=== PATIENT | female | born 1985 | race Caucasian/White ===

== ENCOUNTER 2023-06-12 13:19 | Emergency (ER) | payer SELFPAY ==
[~2023-06-12] VITALS: Ht 160 cm; Wt 80.9 kg
[2023-06-12 14:09] LABS: BASOPHILS % (AUTO) 0.2 % (0-1); EOSINOPHILS % (AUTO) 0.3 % (0-6); HEMATOCRIT 42.3 % (35.0-45.0); HEMOGLOBIN 14.1 g/dl (12.0-16.0); LYMPHOCYTES # (AUTO) 0.8 X10'3 (1.1-4.8); LYMPHOCYTES % (AUTO) 6.1 % (21-51); MEAN CORPUSCULAR HEMOGLOBIN 28.4 PG (27.0-31.0); MEAN CORPUSCULAR HGB CONC 33.4 g/dL (33.0-36.5); MEAN PLATELET VOLUME 8.2 FL (7.4-10.4); MONOCYTES # (AUTO) 0.3 X10'3 (0-0.9); MONOCYTES % (AUTO) 2.1 % (2-12); NEUTROPHILS # (AUTO) 12.7 X10'3 (1.8-7.7); NEUTROPHILS % (AUTO) 91.3 % (42-75); PLATELET COUNT 321 X10'3 (140-440); RED BLOOD COUNT 4.98 X10'6 (4.20-5.60); WHITE BLOOD COUNT 13.9 X10'3 (4.5-11.0)
[2023-06-12] MEDS ORDERED: morphine 4 MG/ML inj SYRINge IV ONE (14:15)
[2023-06-12] MEDS ORDERED: ondansetron/PF 4mg/2ml inj IV ONE (14:15)
[2023-06-12 14:16] LABS: ALANINE AMINOTRANSFERASE 26 U/L (12-78); ALBUMIN 3.4 G/DL (3.4-5.0); ALBUMIN/GLOBULIN RATIO 0.7 (1.1-1.5); ALKALINE PHOSPHATASE 97 IU/L (46-116); ANION GAP 8 (8-16); ASPARTATE AMINO TRANSFERASE 14 U/L (10-37); BILIRUBIN,TOTAL 0.2 MG/DL (0.1-1.0); BLOOD UREA NITROGEN 14 MG/DL (7-18); BUN/CREATININE RATIO 13.9 (10.0-20.0); CALCIUM 8.8 MG/DL (8.5-10.1); CHLORIDE 105 MMOL/L (99-107); CREATININE 1.01 MG/DL (0.40-0.90); GLUCOSE 129 MG/DL (70-104); LIPASE 32 U/L (16-77); SODIUM 139 MMOL/L (135-145); TOTAL CARBON DIOXIDE 26.4 MMOL/L (24-32); eCRCL 62 ML/MIN; eGFR 61 ML/MIN
[2023-06-12 14:21] LABS: URINE HCG NEGATIVE (NEG)
[2023-06-12 14:24] LABS: BILIRUBIN,URINE NEGATIVE (Neg); COLOR,URINE YELLOW (Yellow); GLUCOSE, URINE NEGATIVE (Neg); KETONES,URINE NEGATIVE (Neg); LEUKOCYTE ESTERASE ,URINE NEGATIVE (Neg); NITRITES, URINE NEGATIVE (Neg); OCCULT BLOOD,URINE LARGE (Neg); PROTEIN,URINE NEGATIVE (Neg); UROBILINOGEN,URINE 0.2 E.U/dL (0.2-1.0)
[2023-06-12 14:27] LABS: UA COLLECTION TYPE CLN CATCH MIDSTREAM
[2023-06-12 14:28] LABS: CLARITY,URINE SLIGHTLY CLOUDY (Clear)
[2023-06-12] MEDS ORDERED: iohexol 300mg/ml 100ml inj. ONE (14:30)
[2023-06-12 14:41] LABS: BACTERIA,URINE FEW /HPF (Neg); MUCUS STRANDS FEW /LPF (Neg); RBC,URINE 50-100 /HPF (0-2); SQUAMOUS EPITHELIAL CELL,UR MODERATE /LPF (FEW)
[2023-06-12] MEDS ORDERED: normal saline 1000ml 1,000 ML IV ONE (15:30)
[2023-06-12] MEDS ORDERED: tamsulosin 0.4mg capsule PO SCH (15:30)
[2023-06-12] MEDS ORDERED: ketorolac tromethamine 15mg/ml inj. IV ONE (15:30)
[2023-06-12] MEDS ORDERED: ONDA4TAB12 PO (17:09)
[2023-06-12] MEDS ORDERED: OXYC-150 PO (17:09)
[2023-06-12] MEDS ORDERED: FLO0.4C PO (17:09)
[2023-06-12] MEDS ORDERED: KETO10TA2 PO (17:09)
[2023-06-12 17:34] VITALS: BP 127/92; PULSE 61; RESP 16; TEMP 98.2; O2SAT 100
== END 2023-06-12 17:38 | disposition home or self-care (01) ==
LOC: ER 13:20
DX: N20.1 Calculus of ureter (principal); M54.9 Dorsalgia, unspecified; R39.15 Urgency of urination; Z79.899 Other long term (current) drug therapy
CPT/HCPCS: 36415; 74177; 80053; 81001; 81025; 83690; 85025; 87088; 96361; 96374; 96375; 99285; J1885; J2270; J2405; J3490; J7030; Q9967